=== PATIENT | male | born 1955 | race Caucasian/White ===

== ENCOUNTER 2018-07-05 10:16 | Day surgery (SDC) | payer BC ==
[~2018-07-05 10:16] MED LIST: CELECOXIB 100 MG CAPSULE PO ONE; FAMOTIDINE 20MG TABLET PO ONE; MECLIZINE 25 MG TABLET PO ONE; METOCLOPRAMIDE 10 MG TABLET PO ONE; VANCOMYCIN HCL 1,000 MG in DEXTROSE 5 % IN WATER 250 ML IVPB ONE
[2018-07-05 11:14] LABS: ABO GROUP B; ANTIBODY SCREEN NEGATIVE (NEGATIVE); RH TYPE POSITIVE
[2018-07-05] MEDS ORDERED: PROPOFOL 10 MG/ML VIAL IV ONE (14:00)
[2018-07-05] MEDS ORDERED: TRANEXAMIC ACID 1,000 MG/10 ML ML IV ONE (14:00)
[2018-07-05] MEDS ORDERED: MIDAZOLAM HCL 2MG/2ML VIAL IV ONE (14:00)
[2018-07-05] MEDS ORDERED: BUPIVACAINE 0.5% W/EPI MPF 30 ML VIAL IVP ONE (14:00)
[2018-07-05] MEDS ORDERED: LIDOCAINE 2% MDV (20MG/ML) 20ML VIAL IV ONE (14:00)
[2018-07-05] MEDS ORDERED: ROPIVACAINE HCL (NAROPIN) /PF 5MG/ML 20ML VIAL IV ONE (16:04)
[2018-07-05] MEDS ORDERED: DEXAMETHASONE 4 MG/ML 1ML VIAL IVP ONE (16:04)
[2018-07-05] MEDS ORDERED: DIPHENHYDRAMINE HCL 25 MG CAPSULE PO PRN (16:24)
[2018-07-05] MEDS ORDERED: NALOXONE 0.4 MG/1 ML VIAL IVP PRN (16:24)
[2018-07-05] MEDS ORDERED: BISACODYL 10 MG SUPP RC PRN (16:24)
[2018-07-05] MEDS ORDERED: HYDROCODONE/APAP 10/325 TABLET PO PRN (16:24)
[2018-07-05] MEDS ORDERED: ONDANSETRON HCL IV 4 MG/2 ML VIAL IVP PRN (16:24)
[2018-07-05] MEDS ORDERED: KETOROLAC 30 MG/ML VIAL IVP PRN ×2 (16:24)
[2018-07-05] MEDS ORDERED: ACETAMINOPHEN W/ CODEINE 300MG/60MG TABLET PO PRN ×2 (16:24)
[2018-07-05] MEDS ORDERED: ACETAMINOPHEN 325 MG TAB PO PRN (16:24)
[2018-07-05] MEDS ORDERED: HYDROMORPHONE HCL 2 MG/ML VIAL IM PRN (16:24)
[2018-07-05] MEDS ORDERED: AL HYDROX/MAG HYDROX 30ML UD PO PRN (16:24)
[2018-07-05] MEDS ORDERED: MAGNESIUM HYDROXIDE 30 ML UDC PO PRN (16:24)
[2018-07-05] MEDS ORDERED: ZOLPIDEM TARTRATE 5 MG TABLET PO PRN (16:24)
[2018-07-05] MEDS ORDERED: RIVAROXABAN 10 MG TABLET PO SCH (16:30)
[2018-07-05] MEDS ORDERED: MELATONIN 5 MG TABLET PO PRN (17:31)
[2018-07-05] MEDS: HYDROCODONE/APAP 10/325 TABLET PO PRN ×2 (17:38→22:18)
[2018-07-05] MEDS: HUMULIN R 100 UNIT/ML VIAL SQ SCH (18:25)
[2018-07-05] MEDS ORDERED: LANTUS SC SCH (22:00)
[2018-07-05] MEDS: DOCUSATE SODIUM 100 MG CAPSULE PO SCH (22:15)
[2018-07-05] MEDS: POTASSIUM CHLORIDE/D5-0.9%NACL 20 MEQ/1,000 ML BAG IV SCH (22:17)
[2018-07-06] MEDS: POTASSIUM CHLORIDE/D5-0.9%NACL 20 MEQ/1,000 ML BAG IV SCH ×2 (00:30→11:46)
[2018-07-06] MEDS: HYDROCODONE/APAP 10/325 TABLET PO PRN ×3 (02:01→12:22)
[2018-07-06] MEDS: VANCOMYCIN HCL 1,000 MG in DEXTROSE 5 % IN WATER 250 ML IVPB SCH ×4 (02:02→14:16)
[2018-07-06 06:57] LABS: HEMATOCRIT 38.4 % (42.0-52.0); HEMOGLOBIN 13.3 gm/dl (14.0-18.0)
[2018-07-06 07:05] LABS: BLOOD UREA NITROGEN 15 mg/dL (8-23); CREATININE 0.7 mg/dL (0.7-1.2); EST GLOMERULAR FILTRATION RATE > 60 mL/min; GLUCOSE,RANDOM 172 mg/dL (74-109)
[2018-07-06] MEDS: HUMULIN R 100 UNIT/ML VIAL SQ SCH ×2 (08:08→12:17)
--- NOTE | 2018-07-06 08:41 | Rehab Evaluation ---
Patient Information - Patient Information Diagnosis: OA left knee Ordered Treatment: OT Evaluate and Treat Status: Initial Evaluation Surgery: Yes (left TKA) Date of Surgery: 07/05/18 Past Medical/Surgical Hx: PAST MEDICAL/SURGICAL HISTORY Past Surgical History bilat knee scopes right shoulder sx hernia repair PMH - Respiratory Hx Respiratory Disorders Yes Hx Bronchitis Yes Hx Sleep Apnea Yes Hx of CPAP No PMH - Cardiovascular Hx Cardiovascular Disorders Yes Hx Edema Yes: left leg Hx Hypertension Yes: on meds good control Exercise Tolerance Good PMH - Neuro Hx Neurological Disorders Yes Hx Neuropathy Yes: feet PMH - GI Hx Gastrointestinal Disorders Yes Hx Pancreatitis Yes: hx of 5 yrs ago PMH - Hx Genitourinary Disorders No PMH - Endocrine Hx Endocrine Disorders Yes Hx Diabetes Yes: onset 5 years ago Hx of IDDM Yes: on Insulin Comment: blood sugars 110-120 rarely has to use Humolg A1C 6.4 PMH - Musculoskeletal Hx Musculoskeletal Disorders Yes Hx Arthritis Yes: left knee and back PMH - Psych Hx Psychiatric Problems No PMH - Hematology/Oncology Hx Hematology/Oncology No Disorders Premorbid Status: Detail (Pt lives with spouse in a 2 story house with 2 steps and no railing at the entrance. He has a tub/shower combination, no seat or grab bars and a standard height toilet, no grab bars. He usually stands to shower and he and spouse share IADLs. He owns an orchard and is responsible for caring for that. He owns a walking stick.) Precautions: [place], Fall - Time With Patient Total Time Spent With Patient (Min): 35 Treatment Procedures: Detail (OT eval low complexity) Subjective Information - Subjective Information Per Patient Objective Data - Pain Pain Present: Yes (11/16) - Mental Status Patient Orientation: Oriented x3 - Visual Perception Appears within normal limits for therapeutic activities - ROM Within normal limits (Pt reports injury to left shoulder with resulting pain and weakness at times. He reports motion and strength are generally functional. ) - Strength/Tone Within normal limits (Vasu UE strength functional for ADLs/IADLs) - Coordination Appears within normal limits for therapeutic activities - Bed Mobility Independent (Ind with supine to sit at EOB.) - Transfers Independent (Ind with sit to stand from EOB and chair heights.) - Balance Balance Sitting: Good Balance Standing: Good - Sensation Intact - Gait Detail (Pt ambulated in room and hallway with 2 wheeled walker and SBA.) - ADL's/IADL's Detail (Pt educated and demonstrated learning of modified LE dressing techniques including doffing slipper socks and donning shorts, socks and tennis shoes. Reviewed kitchen and shower safety and modifications, pt verbalized learning.) Therapy Assessment - Therapy Assessment Detail (Pt is safe and Ind with modified LE dressing techniques.) Problem List - Problem List Occupational Therapy Problem List: Detail (No current IP OT problems identified. ) Goals - Goals Occupational Therapy Goals: No current IP OT goals identified. Prognosis - Prognosis Good Plan - Plan Occupational Therapy Plan: No further IP OT recommended. Thank you for this referral.
[2018-07-06] MEDS: DOCUSATE SODIUM 100 MG CAPSULE PO SCH (09:19)
[2018-07-06] MEDS ORDERED: RIVAROXABAN 10 MG TABLET PO SCH (10:00)
[2018-07-06] MEDS ORDERED: FERROUS SULFATE 325 MG TAB PO SCH (10:00)
[2018-07-06] MEDS ORDERED: PATIENT OWN MED: LISINOPRIL 20 MG PO SCH (10:00)
[2018-07-06] MEDS ORDERED: PATIENT OWN MED: METOPROLOL SUCCINATE 50 MG PO SCH (10:00)
[2018-07-06] MEDS ORDERED: LANTUS SC SCH (10:00)
[2018-07-06] MEDS ORDERED: BUPIVACAINE 0.5% W/EPI MPF 30 ML VIAL IVP ONE (11:27)
[2018-07-06] MEDS ORDERED: TRANEXAMIC ACID 1,000 MG/10 ML ML IV ONE (11:27)
[2018-07-06] MEDS ORDERED: LIDOCAINE 2% MDV (20MG/ML) 20ML VIAL IV ONE (11:35)
[2018-07-06] MEDS ORDERED: PROPOFOL 10 MG/ML VIAL IV ONE (11:35)
[2018-07-06] MEDS ORDERED: MIDAZOLAM HCL 2MG/2ML VIAL IV ONE (11:35)
--- NOTE | 2018-07-06 12:56 | Rehab Evaluation ---
Patient Information - Patient Information Diagnosis: OA left knee Ordered Treatment: PT Evaluate and Treat Status: Initial Evaluation Surgery: Yes (left TKA) Date of Surgery: 07/05/18 Past Medical/Surgical Hx: PAST MEDICAL/SURGICAL HISTORY Past Surgical History bilat knee scopes right shoulder sx hernia repair PMH - Respiratory Hx Respiratory Disorders Yes Hx Bronchitis Yes Hx Sleep Apnea Yes Hx of CPAP No PMH - Cardiovascular Hx Cardiovascular Disorders Yes Hx Edema Yes: left leg Hx Hypertension Yes: on meds good control Exercise Tolerance Good PMH - Neuro Hx Neurological Disorders Yes Hx Neuropathy Yes: feet PMH - GI Hx Gastrointestinal Disorders Yes Hx Pancreatitis Yes: hx of 5 yrs ago PMH - Hx Genitourinary Disorders No PMH - Endocrine Hx Endocrine Disorders Yes Hx Diabetes Yes: onset 5 years ago Hx of IDDM Yes: on Insulin Comment: blood sugars 110-120 rarely has to use Humolg A1C 6.4 PMH - Musculoskeletal Hx Musculoskeletal Disorders Yes Hx Arthritis Yes: left knee and back PMH - Psych Hx Psychiatric Problems No PMH - Hematology/Oncology Hx Hematology/Oncology No Disorders Premorbid Status: Detail (Pt lives with spouse in a 2 story house with 2 steps and no railing at the entrance. He has a tub/shower combination, no seat or grab bars and a standard height toilet, no grab bars. He usually stands to shower and he and spouse share IADLs. He owns an orchard and is responsible for caring for that. He owns a walking stick. The patient is to obtain a walker from a loan closet.) Precautions: [place], Fall - Time With Patient Total Time Spent With Patient (Min): 30 Treatment Procedures: Detail (Initial Evaluation, Gait training) Subjective Information - Subjective Information Per Patient (The patient had no complaints of pain, just minimal soreness after ambulation.) Objective Data - Mental Status Patient Orientation: Oriented x3 - Visual Perception Appears within normal limits for therapeutic activities - ROM Not within normal limits (The L knee AROM is limited as to be expected following surgery. All other AROM is WNL.) - Strength/Tone Not within normal limits (The patient's L LE strength was not tested secondary to s/p surgery but was functional ie: patient could complete a SLR and ambulate with standard cane. The patient's R LE was WNL.) - Bed Mobility Independent (The patient was independent with supine to and from sit transfer and scooting up in bed.) - Transfers Independent (The patient was independent with sit to and from stand transfer.) - Balance Balance Sitting: Good Balance Standing: Good - Sensation Intact - Gait Detail (The patient ambulated with front wheeled walker a distance of 150 feet x 1 WBAT on L LE independently and with standard cane 45 feet independently. The patient ambulated on 3 steps with use of railing and standard cane, using proper technique indpendently.) Therapy Assessment - Therapy Assessment Detail (The patient was independent with all mobility, transfers and ambulation. The patient has met all inpatient PT goals.) Patient Education - Patient Education Teaching Topic: Exercise/Activity (The paitent was independent with HEP of TKA exercises including: heel slides seated and supine, ankle pumps, SLR, quad sets , gluteal sets, hamstring sets.) Response: Return Demonstration Teaching Method: Demonstration, Handout Teaching Recipient: Patient Barriers To Learning: None Problem List - Problem List Physical Therapy Problem List: Detail (Decreased L knee AROM and LE strength as to be expected following surgery.) Occupational Therapy Problem List: Detail (No current IP OT problems identified. ) Goals - Goals Physical Therapy Goals: The patient has met all inpatient PT goals. Occupational Therapy Goals: No current IP OT goals identified. Plan - Plan Physical Therapy Plan: All PT goals have been met. The patient is to continue with Home PT. Occupational Therapy Plan: No further IP OT recommended. Thank you for this referral.
--- NOTE | 2018-07-07 11:30 | Operative Note ---
DATE OF SURGERY: 07/05/2018 PREOPERATIVE DIAGNOSIS: End-stage arthrosis of the left knee. POSTOPERATIVE DIAGNOSIS: End-stage arthrosis of the left knee. OPERATION: Cemented left total knee arthroplasty using [employer] Ze[employer]ep II components with a size 7 posterior stabilized femoral component, a size 7 stem tibia baseplate, a 13 mm posterior stabilized highly crosslinked tibial insert, and a 35 mm all plastic patella. Surgeon: Cody Hwang MD Anesthesia: Spinal. PREPARATION: Chloraprep. INDIVIDUAL CONSIDERATIONS: None. PROCEDURE: The patient was taken to the operating room, placed supine on the operating room table. He had a successful induction of spinal anesthetic. The left lower extremity was prepped and draped in the usual fashion. The patient had a midline approach to the knee. The limb was elevated and tourniquet inflated to 300 mmHg. Sharp dissection carried down through skin and subcutaneous tissue. Small veins were coagulated with a Bovie. A medial arthrotomy was performed. The patella was everted and the knee was flexed. The patient had exposed bone and bone loss throughout. There were advanced changes. Fat pad was resected, there was no ACL. The capsule was released from the knee at proximal tibia and provisional anterior meniscectomies were performed. The initial femoral barge pilot hole was then made freehand. The intramedullary femoral cutting jig was placed. It was cut in 7.0 degrees of valgus and adjusted for rotation and secured with pins for a 10 mm resection. The initial transverse cut was then made. The skin guide was placed for anterior and posterior barge pilot holes. It was found that a size 7 would be appropriate. The anterior and posterior cuts followed by chamfer cuts were made. Osteophytes removed, and a size 7 trial was found to fit well. The tibia was brought forward, and the remainder of the meniscal remnants removed with a Bovie. The extraarticular tibial cutting jig was placed. It was cut in neutral with a 3-degree AP slope. It was set for a 9 mm resection keyed out the high lateral side and secured with pins. When cutting the tibia, I attempted to preserve the PCL insertion on the tibia. After making a tibial cut and removing osteophytes, it became clear that the PCL was just not competent and probably was partially torn going in, so I had to end up going to a posterior stabilized implant. I went ahead and impacted the tibial baseplate. I trialed it with a 9 and it seemed to fit fine. I then went back and put the notch reaming and box cutting osteotome guide for the femur back on the femur and reamed and did the box cuts for the posterior stabilized box on the femoral component. I then went ahead and cut the patella. It was very thick. I easily was able to fit a 35 patella, and 3 barge pilot holes were drilled. The knee was then copiously irrigated out with Betadine and saline. Took the tourniquet down briefly to complete it posteriorly and placed it back up again. I went ahead and cemented the tibial baseplate and then cemented in the femoral component. I attempted the liner and it became obvious that the liner would not fit. I went ahead and compressed the femoral component down and then reinspected and found that the liner was actually a Journey liner. The improper one was opened during the case and it was not caught by staff. I went head and then removed the tibial baseplate and took out all the cement and then had to re-true up the tibial cut taking additional 2 mm to true it up. I went ahead and put the size 7 Journey trial on, trialed it with a 13, found that that would be appropriate. I think thoroughly irrigated it out and then cemented in a size 7 stem tibia baseplate Gen II and then after thorough irrigation to remove any visual or palpable debris, impacted the size 13 posterior stabilized liner. This gave excellent stability. I also cemented in the size 35 mm patella. The implant surfaces were compressed, excess cement was removed, and now I had full range of motion and stability with normal tracking. No lateral release was required. Tourniquet was up and down during the case. I got final hemostasis was then after thorough irrigation, closed the capsule with a running #2 quill, subcu was closed in layers with running 0 quill, skin was closed with reyna. Prior to closure, I did infiltrate the skin and periosteum with 0.5% Marcaine with epinephrine 30 mL. The patient did receive 1 g of tranexamic acid preoperatively. I mixed 1 g of tranexamic acid with 30 mL of saline and injected into the knee through a sterile 18-gauge needle and a sterile bulky compressive SHERLY-type dressing was applied. The patient tolerated the procedure well. Needle and sponge counts were correct. Estimated blood loss was 200 mL. He was taken back to recovery in good condition. MTDD
== END 2018-07-06 15:50 | disposition home health service (06) ==
LOC: UNDOADMIN 10:16 → MEDSURG 10:16 → SUR 10:16 → MEDSURG 17:07 → SUR 07-06 15:50 → UNDODISIN 07-06 15:50
PROVIDERS: ATTEND Orthopaedic Surgery
DX: M17.11 Unilateral primary osteoarthritis, right knee (principal); I10 Essential (primary) hypertension; E11.9 Type 2 diabetes mellitus without complications; Z79.4 Long term (current) use of insulin; E78.00 Pure hypercholesterolemia, unspecified; G47.33 Obstructive sleep apnea (adult) (pediatric)
CPT/HCPCS: 27447; 01402; 64447; 85018; 85014; 80048; 36416 ×2; 82948 ×2; 86900; 86901; 86850; J1885; J3370; J3490 ×3; J2795; G8978; G8979; G8980; G8987; G8988; G8989; 76942; C1776; J3480; J7060